=== PATIENT | female | born 1980 | race Caucasian/White ===

== ENCOUNTER → 2017-05-29 | Outpatient (CLI) | payer MEDICAID | LOC: BRMIMAGING 09:25 | PROVIDERS: ATTEND Family Medicine | DX: N64.4 Mastodynia (principal) | CPT/HCPCS: 76641-PO; G0204 ==

== ENCOUNTER → 2017-07-21 | Outpatient (CLI) | payer MEDICAID | LOC: CIMAGING 14:04 | PROVIDERS: ATTEND Family Medicine | DX: M25.572 Pain in left ankle and joints of left foot (principal) | CPT/HCPCS: 73610-PO ==

== ENCOUNTER 2017-08-02 06:14 | Emergency (ER) | payer MEDICAID ==
[2017-08-02 06:17] VITALS: O2SAT 96
[2017-08-02] MEDS ORDERED: predniSONE 20 MG TAB PO ONE (06:40)
--- NOTE | 2017-08-02 06:46 | EDPHY ---
H & P Time Seen by Provider: 08/02/17 06:15 HPI/ROS: CC: neck pain HPI: This 36-year-old female with past medical history of hypothyroidism, anxiety, depression presents to emergency department today complaining of severe neck pain at the base of her head for the last 2 days. She states she was playing with her 3-year-old son on the floor and she was lying on her right side when the full weight of his body fell onto the left side of her head. Since then she has had pain that she rates 6/10 when she is not moving and 8/10 when she does move. The pain is sharp with movement and achy at rest. It has been constant. It radiates to the back of her left shoulder and she describes at discomfort as a burning and hot sensation. The pain was so bad she could not sleep last night. She has tried ibuprofen, ice, heat, and topical oil without relief. She has no numbness, tingling, or weakness in her upper extremities. NOTE: Patient states she prefers to stay away from narcotics, muscle relaxers, and benzodiazepines as she used to have an overuse issue. REVIEW OF SYSTEMS: Constitutional: No fever, no chills. Eyes: No discharge. ENT: No sore throat. Respiratory: No cough, no shortness of breath. Cardiac: No chest pain, no palpitations. Gastrointestinal: No abdominal pain, no vomiting. Genitourinary: No dysuria. Musculoskeletal: SEE HPI. Skin: No rashes. Neurological: No headache. Past Medical/Surgical History: PMH: Insomnia, hypothyroidism, vertigo, SVT PSH: Breast reduction surgery, ovarian cyst, heart ablation, x4 FH: Denied Allergies: Erythromycin which causes vomiting, diarrhea and a rash, morphine which causes itching, disorientation and dizziness Meds: Ibuprofen p.r.n., natural thyroid, herbal medications for digestion and a [place]'s Wort for depression/anxiety Social History: The patient is a former tobacco user. She has an occasional alcoholic beverage. She denies current drug use but states she used to have a "drug issue " mainly referring to pain medication and muscle relaxers. Smoking Status: Former smoker Physical Exam: General Appearance: Alert, mod distress. Eyes: Pupils equal and round no pallor or injection. ENT, Mouth: Mucous membranes are moist. Respiratory: There are no retractions, lungs are clear to auscultation. Cardiovascular: Regular rate and rhythm. Gastrointestinal: Abdomen is nondistended. Neurological: Awake and alert, sensory and motor exams grossly normal. Equal counter server strength and normal light touch BUE. Skin: Warm and dry, no rashes. Musculoskeletal: Neck ROM is restricted due to pain. Moderate to severe tenderness to palpation at C1-C3. No bony step-offs. Extremities are symmetrical, full range of motion. Psychiatric: Patient is oriented X 3, there is no agitation. DIFFERENTIAL DIAGNOSIS: After history and physical exam differential diagnosis was considered for but not limited: for neck strain, herniated disc, c-spine fracture, vertebral artery dissection Constitutional: Initial Vital Signs Temperature (C) 98.8 F 08/02/17 06:16 Heart Rate 68 08/02/17 06:16 Respiratory Rate 18 08/02/17 06:16 Blood Pressure 112/63 08/02/17 06:16 O2 Sat (%) 96 08/02/17 06:16 O2 Delivery Mode Room Air Allergies/Adverse Reactions: erythromycin base [Erythromycin Base] Adverse Reaction (Intermediate, Verified 03/01/13 15:06) Diarrhea morphine [Morphine] Adverse Reaction (Intermediate, Verified 03/01/13 15:06) DIZZY AND VOMITING X14HRS Home Medications: Medication Instructions Recorded Natural Thyroid 05/23/12 Zaleplon [Sonata] 5 - 10 mg PO HS PRN #12 capsule 12/12/15 methylPREDNISolone [Medrol Dose 4 mg PO AD 6 Days ea 08/02/17 Roberto] Medical Decision Making - Diagnostics Imaging Results: 4-view C-spine negative as read by me. Imaging: I viewed and interpreted images myself ED Course/Re-evaluation: The patient was seen and examined. Vital signs were reviewed. The patient would prefer to stay away from narcotics, benzodiazepines and muscle relaxers due to prior overuse issues with these drugs. She was given prednisone 60 mg orally. Plain films of the cervical spine were performed and negative as read by me. Final report pending. She was given a prescription for a Medrol Dosepak and advised to follow up with her primary care provider. If symptoms persist she was advised that she may need an MRI. - Data Points Medications Given: Discontinued Medications Prednisone (Prednisone) 60 mg PO EDNOW ONE Stop: 08/02/17 06:41 Last Admin: 08/02/17 06:47 Dose: 60 mg Departure - Departure Disposition: Home, Routine, Self-Care Clinical Impression: Acute neck sprain Qualifiers: Encounter type: initial encounter Qualified Code(s): S13.9XXA - Sprain of joints and ligaments of unspecified parts of neck, initial encounter Condition: Good Instructions: Cervical Strain (ED) Additional Instructions: Follow up with your primary care provider in the next 7 - 10 days if the symptoms persist or return to the ED sooner if worse as discussed. Referrals: Patient,NotPresent [Primary Care Provider] - As per Instructions Sania Gonzalez MD [Medical Doctor] - As per Instructions Prescriptions: methylPREDNISolone [Medrol Dose Roberto] 4 mg PO AD 6 Days ea
[2017-08-02 09:57] VITALS: BP 122/70; PULSE 73; RESP 16; TEMP 98.2
== END 2017-08-02 07:47 | disposition home or self-care (01) ==
LOC: CED 06:14
DX: S13.9XXA Sprain of joints and ligaments of unspecified parts of neck, initial encounter (principal); Z87.891 Personal history of nicotine dependence; X58.XXXA Exposure to other specified factors, initial encounter
CPT/HCPCS: 72050-PO

== ENCOUNTER 2017-08-18 20:00 | Observation (INO) | payer MEDICAID ==
[2017-08-18 20:29] LABS: COLOR PALE YELLOW; LEUKOCYTE ESTERASE,URINE NEGATIVE (NEGATIVE); NITRITE,URINE NEGATIVE (NEGATIVE)
--- NOTE | 2017-08-18 20:32 | EDPHY ---
H & P Stated Complaint: States noticed hematuria mid morning,rt flank to ruq pain x8 days Time Seen by Provider: 08/18/17 20:08 HPI/ROS: Chief Complaint: Right flank pain, hematuria HPI: 36-year-old woman presenting with 2-3 days of right flank pain. She does have a history of a right neck strain several weeks ago and thinks she has continued to have pain from this. However she has worsening right flank pain for the last 2 days. Today she noticed some hematuria when she went to the restroom. Does not believe she is having vaginal bleeding. Denies any fevers or chills. She is having some nausea but states she is always nauseated, no vomiting. No diarrhea or constipation. Pain is 7/10 at its worst. It is constant. Her last menstrual cycle ended 4 days ago. ROS: 10 point Review of Systems is negative except as noted in the HPI. PMH: Hypothyroidism, SVT status post ablation, x4 Social History: No smoking, no alcohol, no recreational drug use Family History: non-contributory Physical Exam: Gen: Awake, Alert, No Distress HEENT: Nose: no rhinorrhea Eyes: PERRLA, EOMI Mouth: Moist mucosa Neck: Supple, no JVD Chest: nontender, lungs clear to auscultation Heart: S1, S2 normal, no murmur Abd: Soft, moderate right lower quadrant tenderness, no guarding Back: no CVA tenderness, no midline tenderness she does have right paraspinal and system was muscle spasm in tenderness to light palpation reproducing presenting complaint. 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 POST DEPRESSION, SVT-ablation 2010 - Social History Smoking Status: Former smoker Constitutional: Initial Vital Signs Temperature (C) 36.5 C 08/18/17 20:08 Heart Rate 76 08/18/17 20:08 Respiratory Rate 16 08/18/17 20:08 Blood Pressure 127/62 H 08/18/17 20:08 O2 Sat (%) 96 08/18/17 20:08 O2 Delivery Mode Room Air Allergies/Adverse Reactions: erythromycin base [Erythromycin Base] Adverse Reaction (Intermediate, Verified 08/18/17 20:07) Diarrhea morphine [Morphine] Adverse Reaction (Intermediate, Verified 08/18/17 20:07) DIZZY AND VOMITING X14HRS Home Medications: Medication Instructions Recorded Natural Thyroid 05/23/12 Medical Decision Making - Diagnostics Imaging Results: Imaging Impressions Abdomen/Pelvis CT 08/18/17 20:40 Impression: 1. Acute appendicitis +- mucocele or other tumor of the appendix. 2. Contracted gallbladder. 3. No nephro or ureterolithiasis. Results called and discussed with Alistair Sinha MD, at 08/18/2017 21:09 Attention: This CT examination is specifically designed to evaluate patients who are clinically suspected of having acute obstructive uropathy. This examination does not use radiographic contrast, and as such, provides only a limited evaluation of the abdomen, pelvis and retroperitoneum. If there is further clinical suspicion for pathological conditions other than obstructive uropathy, a complete CT evaluation of the abdomen and pelvis utilizing intravenous, oral, and rectal contrast should be considered. General information for patients regarding this examination can be found at [email or web address]. If you have questions or comments about this report, please contact me at (hospital) or [phone] (cell). Imaging: Discussed imaging studies w/ at home independent call center agent Radiologist ED Course/Re-evaluation: 36-year-old with right flank pain and hematuria. Will check urinalysis to confirm any insurance defense attorney and reassess. Urinalysis is consistent with hematuria. There is no pyuria. Will obtain CT scan to rule out kidney stone. CT scan results noted, discussed with Dr. Onofre. Consistent with acute appendicitis. Discussed with Dr. Malcolm Solis, surgery. He will accept the patient transfer to [facility] for planned for appendectomy. I have ordered 1 g of Invanz here. Patient has pain is controlled. She will be going via private vehicle. - Data Points Laboratory Results: 08/18/17 08/18/17 20:20 20:20 Urine Color PALE YELLOW Urine Appearance HAZY Urine pH 7.0 (5.0-7.5) Ur Specific [place] 1.010 (1.002-1.030) Urine Protein NEGATIVE (NEGATIVE) Urine Ketones NEGATIVE (NEGATIVE) Urine Blood 3+ H (NEGATIVE) Urine Nitrate NEGATIVE (NEGATIVE) Urine Bilirubin NEGATIVE (NEGATIVE) Urine Urobilinogen 0.2 EU EU (0.2-1.0) Ur Leukocyte Esterase NEGATIVE (NEGATIVE) Urine RBC 5-10 /hpf H /hpf (0-3) Urine WBC NONE SEEN /hpf /hpf (0-3) Ur Epithelial Cells TRACE /lpf /lpf (NONE-1+) Urine Bacteria TRACE /hpf H /hpf (NONE SEEN) Urine Glucose NEGATIVE (NEGATIVE) Urine Test NEGATIVE Departure - Departure Disposition: [facility] Inpatient Acute Clinical Impression: Acute appendicitis Condition: Fair Referrals: Sania Gonzalez MD [Primary Care Provider] - As per Instructions
[2017-08-18 20:37] LABS: BACTERIA TRACE /hpf (NONE SEEN); WBC,URINE NONE SEEN /hpf (0-3)
[2017-08-18 21:28] LABS: % IMMATURE GRANULYOCYTES 0.3 % (0.0-1.1); ABSOLUTE IMMATURE GRANULOCYTES 0.04 10^3/uL (0.00-0.10); ADD DIFF? NO; ADD MORPH? NO; ADD SCAN? NO; ATYPICAL LYMPHOCYTE FLAG 10 (0-99); FRAGMENT RBC FLAG 0 (0-99); HEMATOCRIT 40.1 % (38.0-47.0); HEMOGLOBIN 13.5 g/dL (12.6-16.3); LEFT SHIFT FLG 0 (0-99); LIPEMIA HEMOLYSIS FLAG 80 (0-99); MEAN CELL HEMOGLOBIN CONCENTR. 33.7 g/dL (32.4-36.7); MEAN CELL VOLUME 83.2 fL (81.5-99.8); MEAN PLATELET VOLUME 9.3 fL (8.7-11.7); PLATELET CLUMPS FLAG 0 (0-99); PLATELET COUNT 311 10^3/uL (150-400); RED BLOOD CELL COUNT 4.82 10^6/uL (4.18-5.33); RED CELL DISTRIBUTION WIDTH 13.5 % (11.5-15.2)
[2017-08-18] MEDS ORDERED: ERTAPENEM 1 GM VIAL IVP ONE (21:32)
[2017-08-18 21:41] LABS: ALANINE AMINOTRANSFERASE 26 IU/L (9-52); ALBUMIN 3.7 g/dL (3.5-5.0); ALKALINE PHOSPHATASE 90 IU/L (38-126); ANION GAP 15 mEq/L (8-16); ASPARTATE AMINOTRANSFERASE 15 IU/L (14-46); BILIRUBIN,TOTAL 0.2 mg/dL (0.1-1.4); CALCIUM 9.1 mg/dL (8.5-10.4); CARBON DIOXIDE 25 mEq/l (22-31); CHLORIDE 102 mEq/L (97-110); GLOMERULAR FILTRATION RATE > 60; GLUCOSE 92 mg/dL (70-100); POTASSIUM 3.8 mEq/L (3.5-5.2); SODIUM 142 mEq/L (134-144); TOTAL PROTEIN 7.2 g/dL (6.3-8.2)
--- NOTE | 2017-08-18 22:09 | GHP ---
[f rep st] PREOP HISTORY AND PHYSICAL Amended report HISTORY OF PRESENT ILLNESS: A 36-year-old female with 2 days of right flank and right lower quadrant pain. CT scan demonstrated an unusually usually enlarged appendix measuring up to 22 mm without signs of perforation, probably acute appendicitis, but could be a mucocele of the appendix. Her white count is also elevated at 12,000. She is admitted at this time for laparoscopic appendectomy. The risks and options are fully discussed. PAST MEDICAL HISTORY: Includes a cardiac ablation for SVT, multiple sections, and hypothyroidism. REVIEW OF SYSTEMS: Negative on a 10-point review of systems. Specifically she does not smoke or have any major cardiopulmonary symptoms at this time. ALLERGIES: Erythromycin. MEDICATIONS: Thyroid. PHYSICAL EXAMINATION: GENERAL: An alert 36-year-old female in no acute distress. HEAD AND NECK: Exam is negative for adenopathy, icterus or oral lesions. CHEST : Clear. CARDIAC: Exam is a regular rhythm. ABDOMEN: Soft, tender in the right lower quadrant. BACK: Reveals no abnormalities. No masses. No CVA tenderness. EXTREMITIES: Reveal full range of motion, full pulses. SKIN: Exam reveals no rashes or lesions. NEUROLOGIC: Exam is symmetric and physiologic. IMPRESSION: Acute appendicitis. PLAN: Laparoscopic appendectomy. The risks and options are fully discussed. /[id number]/MODL Add acc#, 08/19/17, bekah SERNA
[2017-08-18] MEDS ORDERED: ceFAZolin 1 GM/5 ML SYR ONE (23:36)
[2017-08-18] MEDS ORDERED: BUPIVACAINE 0.5% 30 ML SDV ONE (23:36)
[2017-08-18] MEDS ORDERED: HEPARIN 1000 UNIT/1 ML MDV ONE (23:36)
[2017-08-18] MEDS ORDERED: SCOPOLAMINE HYDROBROMIDE 1 MG/3 DAYS PATCH TD ONE (23:44)
[2017-08-18] MEDS ORDERED: SCOPOLAMINE HYDROBROMIDE 1 MG/3 DAYS PATCH TD SCH (23:45)
[2017-08-18] MEDS ORDERED: MIDAZOLAM 2 MG/2 ML VIAL IVP ONE (23:49)
--- NOTE | 2017-08-18 23:51 | PDANEPAE ---
ANE Past Medical History - Cardiovascular History Hx Hypertension: No Hx Arrhythmias: Yes Hx Chest Pain: No Hx Coronary Artery / Peripheral Vascular Disease: No Hx CHF / Valvular Disease: No Hx Palpitations: No Cardiovascular History Comment: h/o arrhythmia ablation - Pulmonary History Hx COPD: No Hx Asthma/Reactive Airway Disease: No Hx Recent Upper Respiratory Infection: Yes Hx Oxygen in Use at Home: No Hx Sleep Apnea: No Sleep Apnea Screening Result - Last Documented: Negative - Endocrine History Hx Diabetes: No Hypothyroid: Yes Hyperthyroid: No Obesity: severe ANE Review of Systems Review of Systems: ANE Patient History - Allergies Allergies/Adverse Reactions: erythromycin base [Erythromycin Base] Adverse Reaction (Intermediate, Verified 08/18/17 20:07) Diarrhea morphine [Morphine] Adverse Reaction (Intermediate, Verified 08/18/17 20:07) DIZZY AND VOMITING X14HRS - Home Medications Home Medications: Natural Thyroid 05/23/12 [Last Taken Unknown] - Smoking Hx Smoking Status: Former smoker ANE Labs/Vital Signs - Labs Result Diagrams: 08/18/17 21:25 08/18/17 21:25 - Vital Signs Blood Pressure: 126/76 Heart Rate: 88 Respiratory Rate: 20 O2 Sat (%): 96 Height: 170.18 cm Weight: 99.79 kg ANE Physical Exam - Airway Neck exam: FROM Mallampati Score: Class 2 Mouth exam: normal dental/mouth exam - Pulmonary Pulmonary: no respiratory distress - Cardiovascular Cardiovascular: regular rate and rhythym - ASA Status ASA Status: II, E ANE Anesthesia Plan Anesthesia Plan: general endotracheal anesthesia
[2017-08-18] MEDS ORDERED: MIDAZOLAM 2 MG/2 ML VIAL ONE (23:56)
[2017-08-19] MEDS ORDERED: PROPOFOL 200 MG/20 ML VIAL ONE (00:03)
[2017-08-19] MEDS ORDERED: ONDANSETRON 4 MG/2 ML VIAL ONE ×2 (00:04→01:18)
[2017-08-19] MEDS ORDERED: ROCURONIUM 100 MG/10 ML VIAL ONE (00:04)
[2017-08-19] MEDS ORDERED: LIDOCAINE 2% 5 ML SDV ONE (00:04)
[2017-08-19] MEDS ORDERED: KETOROLAC 30 MG/1 ML SDV ONE (00:04)
[2017-08-19] MEDS ORDERED: DEXAMETHASONE 4 MG/ML VIAL ONE (00:04)
[2017-08-19] MEDS ORDERED: fentaNYL 100 MCG/2 ML INJ ONE ×2 (00:06→01:18)
[2017-08-19] MEDS ORDERED: SUGAMMADEX SODIUM 200 MG/2 ML VIAL IVP ONE (00:40)
--- NOTE | 2017-08-19 01:05 | POSTOPPROG ---
Post Op Note Date of Operation: 08/19/17 Surgeon: Malcolm Solis Anesthesiologist: lakia Anesthesia: GET(General Endotracheal) Pre-op Diagnosis: acute appe Post-op Diagnosis: same Indication: pain Procedure: lap appe Findings: large dilated appe with minimal inflammation Inf/Abcess present in the surg proc area at time of surgery?: Yes Depth: Organ Space EBL: Minimal Specimen(s): appendix
[2017-08-19] MEDS ORDERED: HYDROmorphONE/DILAUDID 1 MG/ML INJ IVP PRN ×2 (01:06→01:08)
[2017-08-19] MEDS ORDERED: KETOROLAC 30 MG/1 ML SDV IVP ONE (01:06)
[2017-08-19] MEDS ORDERED: ONDANSETRON 4 MG/2 ML VIAL IVP PRN (01:06)
[2017-08-19] MEDS ORDERED: PROMETHAZINE HCL 25 MG/ML INJ IVP PRN (01:08)
[2017-08-19] MEDS ORDERED: NALOXONE HCL 0.4 MG/ML INJ IVP PRN (01:08)
[2017-08-19] MEDS ORDERED: LABETALOL HCL 5 MG/ML 20 ML MDV IVP PRN (01:08)
[2017-08-19] MEDS ORDERED: fentaNYL 100 MCG/2 ML INJ IVP PRN (01:08)
--- NOTE | 2017-08-19 01:10 | POSTANESTH ---
Post Anesthetic Evaluation Cardiovascular Status: Normal, Stable Respiratory Status: Normal, Stable Level of Consciousness/Mental Status: Can Participate in Eval Pain Control: Adequate, Prn Tx Ordered Nausea/Vomiting Control: Adequate, Prn Tx Ordered Complications Possibly Related to Anesthesia: None Noted
[2017-08-19] MEDS ORDERED: D5W 1/2 NS W/ 20 KCl/L 1,000 ML IV SCH (01:15)
[2017-08-19] MEDS ORDERED: PROMETHAZINE HCL 25 MG/ML INJ ONE (01:35)
[2017-08-19 01:49] VITALS: RESP 16
[2017-08-19] MEDS ORDERED: KETOROLAC 15 MG/1 ML SDV IVP SCH (06:00)
[2017-08-19 06:39] VITALS: TEMP 98.3
[2017-08-19 07:39] VITALS: BP 108/65; PULSE 65; O2SAT 95
--- NOTE | 2017-08-19 07:42 | GOP ---
[f rep st] OPERATIVE REPORT DATE OF OPERATION: 08/19/2017 SURGEON: Malcolm Solis MD LEATHER SOFTENER: None. ANESTHESIOLOGIST: Breanne Luong. PREOPERATIVE DIAGNOSIS: Acute appendicitis. POSTOPERATIVE DIAGNOSIS: Acute appendicitis. PROCEDURE PERFORMED: Laparoscopic appendectomy. FINDINGS: ESTIMATED BLOOD LOSS: Negligible. DESCRIPTION OF PROCEDURE: The patient taken to the operating room where she received a satisfactory general endotracheal anesthesia by Dr. Breanne Luogn, placed in supine position, prepped and draped in u sual sterile fashion. A periumbilical incision was made. A Veress needle inserted. Pneumoperitoneu m was established. Trocar was introduced. Laparoscope introduced. Adequate visualization was obtai gordo. Two other trocars were placed in the abdomen under direct vision. The appendix was quite large and dilated. It was elevated up. The mesoappendix was divided with the Harmonic Scalpel and the ba se was skeletonized. It was then divided with an Endo-YASH stapler. The specimen was placed in a spe cimen bag and extracted through the upper midline port site. Hemostasis was assured. The closure lo oked excellent. The trocars were removed under direct vision. Trocar sites were closed with 0 Vicry l for the fascia, 4-0 Monocryl subcuticular stitch for the skin. All layers were infiltrated with 0. 5% Marcaine. OPERATIVE FINDING: The patient was found to have a large distended appendix, very much looking like a mucocele with minimal inflammation. There was no rupture. Was a trace amount of free blood in her pelvis. COMPLICATIONS: There were no complications. Taken to recovery room in good condition there. /[id number]/MODL
--- NOTE | 2017-08-19 09:52 | SOAPPROG ---
SOAP Progress Note Assessment/Plan: Assessment/Plan: 36 Y F s/p lap appy, appendicitis, possible mucocele. Doing well. Eating. Pain controlled. AFVSS. D/c to home. alert, nad no wob rrr abd soft, appropriately ttp, inc cdi 08/19/17 09:51 Objective: Vital Signs Temp Pulse Resp BP Pulse Ox 36.8 C 65 16 108/65 95 08/19/17 07:37 08/19/17 07:37 08/19/17 07:37 08/19/17 07:37 08/19/17 07:37 08/18/17 08/19/17 08/20/17 05:59 05:59 05:59 Intake Total 2400 Output Total 10 Balance 2390 ICD10 Worksheet Patient Problems: Problems Problem Status Onset Acute appendicitis Acute
[2017-08-21] MEDS ORDERED: PATCH REMOVAL 1 EA PATCH TD SCH (23:49)
== END 2017-08-19 11:40 | disposition home or self-care (01) ==
LOC: CED 20:00 → CEDHOLD 21:31 → FOB 23:00
PROVIDERS: ADMIT Surgery; ATTEND Surgery
PROC: 0DTJ4ZZ Resection of Appendix, Percutaneous Endoscopic Approach (ICD-10-PCS; principal; 2017-08-18)
DX: K35.80 Unspecified acute appendicitis (principal); E03.9 Hypothyroidism, unspecified; K82.0 Obstruction of gallbladder; Z87.891 Personal history of nicotine dependence
CPT/HCPCS: 74176-PO; 80053-PO; 81003-PO; 81015-PO; 81025-PO; 83690-PO; 85025-PO; J1100; J1335; J1885; J2250; J2405; J2550; J2704; J3010

== ENCOUNTER 2017-09-09 12:45 | Emergency (ER) | payer MEDICAID ==
[2017-09-09 12:54] VITALS: TEMP 98
[2017-09-09] MEDS ORDERED: NS 1,000 ML IV ONE (13:53)
[2017-09-09 14:06] LABS: PLATELET COUNT 308 10^3/uL (150-400)
[2017-09-09 14:16] VITALS: PULSE 74; RESP 18
--- NOTE | 2017-09-09 15:27 | EDPHY ---
H & P Stated Complaint: here 2 wks ago with appy/ 23 Rt abd painN/V/GRECO/URI Time Seen by Provider: 09/09/17 13:10 HPI/ROS: CHIEF COMPLAINT: Abdominal pain History by patient HISTORY OF PRESENT ILLNESS: 36-year-old woman who is 2 weeks status post appendectomy presents complaining of 48 hr of increasing right upper quadrant pain. Patient states it feels similar to when she had her appendix symptoms. The pain comes and goes and she describes it as severe and stabbing. She has had no fever chills. She has had some mild nausea but no vomiting has been able to eat somewhat but she feels that this makes it somewhat worse. She denies any urinary symptoms but states that she has some chronic stress incontinence. Patient states that she also has polycystic ovary disease and has some chronic lower abdominal pain and is 1 week late for her menses and feels like this may be also be acting up. She has had no vomiting and no change in bowels. She had a bowel movement today. Patient also notes she has had URI symptoms for few days and has been doing lots of coughing and feels like the coughing exacerbates her abdominal pain. She has a history of asthma in childhood. She does not smoke. 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 POST DEPRESSION, SVT-ablation 2010 - Social History Smoking Status: Former smoker - Physical Exam Exam: General Appearance: Alert, obese, comfortable appearing. Eyes: Pupils equal and round, no pallor or injection. Mouth: Mucous membranes moist. Respiratory: Normal, effort, lungs are clear to auscultation. No wheezes, rales or rhonchi but positive wheeze with cough Cardiovascular: Regular rate and rhythm. S1, S2, no murmurs, gallops or rubs appreciated Gastrointestinal: bowel sounds present, Abdomen is soft and mild right upper quadrant tenderness, no masses Back: No CVA tenderness, no bony tenderness Neurological: Awake, alert and oriented x 3, no pronator drift, normal gait, no pronator drift Skin: Warm and dry, no rashes. Musculoskeletal: No deformities or tenderness. Extremities: full range of motion, no edema Psychiatric: Patient has normal affect, there is no agitation. Constitutional: Initial Vital Signs Temperature (C) 36.6 C 09/09/17 12:50 Heart Rate 81 09/09/17 12:50 Respiratory Rate 20 09/09/17 12:50 Blood Pressure 124/70 H 09/09/17 12:50 O2 Sat (%) 94 09/09/17 12:50 O2 Delivery Mode Room Air Allergies/Adverse Reactions: erythromycin base [Erythromycin Base] Allergy (Intermediate, Verified 08/19/17 00:08) Diarrhea morphine [Morphine] Allergy (Intermediate, Verified 08/19/17 00:08) DIZZY AND VOMITING X14HRS Home Medications: Medication Instructions Recorded Natural Thyroid 05/23/12 Hydrocodone/APAP 5/325 [[place] 1 - 2 tab PO Q4H PRN #14 tab 08/19/17 5/325 (*)] Ibuprofen [Motrin (*)] 600 mg PO Q6H #40 tab 08/19/17 Albuterol [Proventil Inhaler HFA 1 - 2 puffs IH Q4H #1 mdi 09/09/17 (*)] Medical Decision Making - Diagnostics Imaging: Discussed imaging studies w/ bingo caller Radiologist ED Course/Re-evaluation: 36-year-old woman who is 2 weeks status post appendectomy presents with recurrence of right upper abdominal pain. She is afebrile. Urinalysis shows persistent hematuria but no evidence of infection. It has been sent for culture. Patient was given an ibuprofen after which she was feeling minimal relief. On repeat exams remained tender in the right upper quadrant with a positive Sinha sign. Labs are notable for an elevated white blood cell count and normal chemistries. At this point I doubt surgical infection but I am concerned about her gallbladder and therefore a right upper quadrant ultrasound has been ordered. Right upper quadrant ultrasound showed no evidence of sonographic murky peas was otherwise unremarkable. Patient was able tolerate crackers in the emergency department. This might cause of her symptoms remains unclear but I my suspicion of intra-abdominal infection is low at this point. I recommend patient is re-examined 24 hr either here or by her primary care physician and sooner if she gets worse or develops new symptoms. In addition the patient has had several days of cough and URI symptoms and has a wheezy cough on exam and she has been prescribed an albuterol inhaler for this. - Data Points Laboratory Results: Laboratory Results 09/09/17 14:04 09/09/17 14:04 09/09/17 09/09/17 09/09/17 14:04 14:04 13:10 WBC 10.76 10^3/uL H 10^3/uL (3.80-9.50) RBC 4.82 10^6/uL 10^6/uL (4.18-5.33) Hgb 13.2 g/dL g/dL (12.6-16.3) Hct 40.0 % % (38.0-47.0) MCV 83.0 fL fL (81.5-99.8) MCH 27.4 pg L pg (27.9-34.1) MCHC 33.0 g/dL g/dL (32.4-36.7) RDW 13.8 % % (11.5-15.2) Plt Count 308 10^3/uL 10^3/uL (150-400) MPV 9.2 fL fL (8.7-11.7) Neut % (Auto) 68.0 % % (39.3-74.2) Lymph % (Auto) 21.9 % % (15.0-45.0) [place] % (Auto) 6.6 % % (4.5-13.0) Eos % (Auto) 2.5 % % (0.6-7.6) Baso % (Auto) 0.7 % % (0.3-1.7) Nucleat RBC Rel Count 0.0 % % (0.0-0.2) Absolute Neuts (auto) 7.31 10^3/uL H 10^3/uL (1.70-6.50) Absolute Lymphs (auto) 2.36 10^3/uL 10^3/uL (1.00-3.00) Absolute Monos (auto) 0.71 10^3/uL 10^3/uL (0.30-0.80) Absolute Eos (auto) 0.27 10^3/uL 10^3/uL (0.03-0.40) Absolute Basos (auto) 0.08 10^3/uL 10^3/uL (0.02-0.10) Absolute Nucleated RBC 0.00 10^3/uL 10^3/uL (0-0.01) Immature Gran % 0.3 % % (0.0-1.1) Immature Gran # 0.03 10^3/uL 10^3/uL (0.00-0.10) Sodium 142 mEq/L mEq/L (134-144) Potassium 4.2 mEq/L mEq/L (3.5-5.2) Chloride 105 mEq/L mEq/L (97-110) Carbon Dioxide 24 mEq/l mEq/l (22-31) Anion Gap 13 mEq/L mEq/L (8-16) BUN 15 mg/dL mg/dL (7-23) Creatinine 0.9 mg/dL mg/dL (0.6-1.0) Estimated GFR > 60 Glucose 84 mg/dL mg/dL (70-100) Calcium 8.9 mg/dL mg/dL (8.5-10.4) TSH 6.480 uIU/mL H uIU/mL (0.465-4.680) Urine Color YELLOW Urine Appearance CLEAR Urine pH 6.0 (5.0-7.5) Ur Specific [place] 1.015 (1.002-1.030) Urine Protein NEGATIVE (NEGATIVE) Urine Ketones NEGATIVE (NEGATIVE) Urine Blood 1+ H (NEGATIVE) Urine Nitrate NEGATIVE (NEGATIVE) Urine Bilirubin NEGATIVE (NEGATIVE) Urine Urobilinogen 0.2 EU EU (0.2-1.0) Ur Leukocyte Esterase NEGATIVE (NEGATIVE) Urine RBC 5-10 /hpf H /hpf (0-3) Urine WBC 1-3 /hpf /hpf (0-3) Ur Epithelial Cells 1+ /lpf /lpf (NONE-1+) Urine Bacteria 1+ /hpf H /hpf (NONE SEEN) Urine Mucus 2+ /lpf H /lpf (NONE-1+) Urine Yeast OCCASIONAL /hpf H /hpf (NONE SEEN) Urine Glucose NEGATIVE (NEGATIVE) Medications Given: Discontinued Medications Sodium Chloride (Ns) 1,000 mls @ 0 mls/hr IV ONCE ONE; Wide Open PRN Reason: Protocol Stop: 09/09/17 13:54 Last Admin: 09/09/17 14:12 Dose: 1,000 mls Departure - Departure Disposition: Home, Routine, Self-Care Clinical Impression: Abdominal pain Qualifiers: Abdominal location: right upper quadrant Qualified Code(s): R10.11 - Right upper quadrant pain Upper respiratory infection Qualifiers: URI type: unspecified URI Qualified Code(s): J06.9 - Acute upper respiratory infection, unspecified Condition: Good Instructions: Abdominal Pain (ED), Upper Respiratory Infection (ED) Additional Instructions: You were seen by Dr. Jaqueline Bull today. Ultrasound was unremarkable. Please see your primary care physician tomorrow for re-evaluation and sooner in the ED if worse or new symptoms. Please use albuterol inhaler as needed for coughing. Return for any worsening or new concerns. Referrals: Unknown,Unknown [Primary Care Provider] - As per Instructions Prescriptions: Albuterol [Proventil Inhaler HFA (*)] 1 - 2 puffs IH Q4H #1 mdi
[2017-09-09 16:04] VITALS: BP 117/62; O2SAT 94
== END 2017-09-09 16:01 | disposition home or self-care (01) ==
LOC: CED 12:45
DX: R10.11 Right upper quadrant pain (principal); J06.9 Acute upper respiratory infection, unspecified; J45.909 Unspecified asthma, uncomplicated; E86.9 Volume depletion, unspecified; Z87.891 Personal history of nicotine dependence
CPT/HCPCS: 76705-PO; 80048-PO; 81003-PO; 81015-PO; 84443-PO; 85025-PO

== ENCOUNTER 2018-12-14 18:35 | Emergency (ER) | payer MEDICAID ==
[2018-12-14] MEDS ORDERED: NS 1,000 ML IV ONE (18:59)
[2018-12-14] MEDS ORDERED: KETOROLAC 30 MG/1 ML SDV IVP ONE (20:03)
--- NOTE | 2018-12-14 20:06 | EDPHY ---
H & P Stated Complaint: pain right lower pelvic area for 2 weeks,nausea Time Seen by Provider: 12/14/18 18:48 HPI/ROS: This patient presents with achy pain to the right lower belly 2 weeks in duration, similar to pain from ovarian cysts in the past with a history of polycystic ovarian disease. She states that she has had minimal improvement from [id number] analgesics in that the pain worsened today to 7/10 intensity. She feels partial improvement at rest and slightly worse with movement but notes no other exacerbating factors. It does radiate slightly to her right flank for the 1st time today but is otherwise unchanged other than the intensity mentioned above. She did have a ruptured cyst in the past and required surgery for cyst that was group for size and due to the concerns of potential complications of ovarian cysts came in today for evaluation. She has associated mild nausea and no other associated symptoms. Her last menstrual period was 28 days ago and she anticipates imminent menstrual period. She reports that her pain usually diminishes significantly when she has a menstrual period. ROS: Constitutional: No fevers or chills HEENT: No complaints Pulmonary: No complaints Cardiovascular: No lightheadedness GI: She maintains normal appetite. She has no vomiting. No diarrhea. No abdominal distension. : No dysuria frequency or urgency. No vaginal discharge. 10 point review of symptoms is performed and otherwise negative with exception of pertinent positives and negatives listed in HPI and ROS Source: Patient Exam Limitations: No limitations - Personal History LMP (Females 10-55): 22-28 Days Ago Current Tetanus Diphtheria and Acellular Pertussis (TDAP): Yes Tetanus Vaccine Date: 2009 - Medical/Surgical History PMH: Appendicitis with appendectomy A CT performed on 08/18/2017 of abdomen pelvis revealed no nephrolithiasis at that time Hx Asthma: Yes Hx Chronic Respiratory Disease: No Hx Diabetes: No Hx Cardiac Disease: No Hx Renal Disease: No Hx Cirrhosis: No Hx Alcoholism: No Hx HIV/AIDS: No Hx Splenectomy or Spleen Trauma: No Other PMH: HASHIMOTOS DISEASE, EATING DISORDER,. POST DEPRESSION, SVT- ablation 2010,PCOS, ovarian cyst removals right,5 miscarriages,appendectomy, breast reduction - Family History Significant Family History: No pertinent family hx - Social History Smoking Status: Former smoker Alcohol Use: Occasionally Drug Use: None Additional Social History: She is a single mother of 4 children - Physical Exam Exam: General Appearance: Alert, no distress. Eyes: Pupils equal and round no pallor or injection. ENT, Mouth: Mucous membranes moist. Respiratory: There are no retractions, lungs are clear to auscultation. Cardiovascular: Regular rate and rhythm. Gastrointestinal: Normoactive, soft, positive right lower quadrant tenderness that is mild with no guarding or rebound. Back: No CVA tenderness Neurological: GCS 15. Skin: Warm and dry, no rashes. Musculoskeletal: Neck is supple nontender. Extremities are symmetrical, full range of motion. Psychiatric: Mood and affect are normal DIFFERENTIAL DIAGNOSIS: After history and physical exam differential diagnosis was considered for ovarian cyst, premenstrual cramping, ectopic , urinary tract infection, constipation Constitutional: Initial Vital Signs Temperature (C) 37 C 12/14/18 18:47 Heart Rate 80 12/14/18 18:47 Respiratory Rate 16 12/14/18 18:47 Blood Pressure 116/62 12/14/18 18:47 O2 Sat (%) 97 12/14/18 18:47 O2 Delivery Mode Room Air Allergies/Adverse Reactions: erythromycin base [Erythromycin Base] Allergy (Intermediate, Verified 12/14/18 18:45) Diarrhea morphine [Morphine] Allergy (Intermediate, Verified 12/14/18 18:45) DIZZY AND VOMITING X14HRS Home Medications: Medication Instructions Recorded Natural Thyroid 05/23/12 Albuterol [Proventil Inhaler HFA 1 - 2 puffs IH PRN PRN 12/14/18 (*)] Medical Decision Making ED Course/Re-evaluation: IV normal saline bolus Review of labs reveals normal CBC, normal basic metabolic panel, negative urine test, urine dip normal exception of trace blood. Patient declined any analgesics and declined any antiemetics reporting her nausea had spontaneously improved. She explains that she simply wanted to rule out any potential change risk complications or diagnoses but felt that she could handle her pain with a combination of ibuprofen Tylenol at home. She did except a dose of Toradol after learning that would not cause any sort of sedation . She reports some improvement in her pain after Toradol Discussion: Patient with right lower quadrant discomfort similar to previous ovarian cyst with benign workup tonight-no rebound tenderness, normal CBC and vital signs. We ruled out , UTI is no other red flag findings. Patient will follow up with OBGYN for any ongoing symptoms. I counseled regarding all of her test results and plan in some detail answered all her questions prior to discharge. She understands need to return to the emergency department should she develop any significant worsening of her symptoms despite treatment plan. - Data Points Laboratory Results: 12/14/18 19:33 POC Sodium 140 mEq/L mEq/L (135-145) POC Potassium 4.0 mEq/L mEq/L (3.3-5.0) POC Chloride 107.0 mEq/L mEq/L (97-110) POC Total CO2 26 mEq/L mEq/L (22-31) POC BUN 20 mg/dL mg/dL (7-23) POC Creatinine 1.0 mg/dL mg/dL (0.6-1.0) POC Glucose 81 mg/dL mg/dL (70-100) POC Calcium 9.6 mg/dL mg/dL (8.5-10.4) Medications Given: Discontinued Medications Sodium Chloride (Ns) 1,000 mls @ 0 mls/hr IV ONCE ONE; Wide Open PRN Reason: Protocol Stop: 12/14/18 19:00 Last Admin: 12/14/18 19:32 Dose: 1,000 mls Ketorolac Tromethamine (Toradol) 30 mg IVP EDNOW ONE Stop: 12/14/18 20:04 Last Admin: 12/14/18 20:10 Dose: 30 mg Point of Care Test Results: CBC CBC Collection Date 12/14/18 CBC Collection Time 19:25 WBC 9.93 RBC 4.87 HGB 13.7 HCT 40.5 PLT 271 Neut # 6.18 Neut 62.2 LYMPH # 2.54 LYMPH 25.6 MCV 83.2 Chemistry 12/14/18 19:33 POC Sodium 140 mEq/L mEq/L (135-145) POC Potassium 4.0 mEq/L mEq/L (3.3-5.0) POC Chloride 107.0 mEq/L mEq/L (97-110) POC Total CO2 26 mEq/L mEq/L (22-31) POC BUN 20 mg/dL mg/dL (7-23) POC Creatinine 1.0 mg/dL mg/dL (0.6-1.0) POC Glucose 81 mg/dL mg/dL (70-100) POC Calcium 9.6 mg/dL mg/dL (8.5-10.4) Urine Collection Date 12/14/18 Collection Time 19:15 HCG Results Negative Urine Dip Collection Date 12/14/18 Collection Time 19:15 Specific [place] (1.002-1.030) 1.020 PH (5.0-7.5) 6.5 Leukocytes (Negative) Negative Nitrites (Negative) Negative Protein (Negative) Negative Glucose (Negative) Negative Ketones (Negative) Negative Urobilnogen (0.2-1.0 EU) 0.2 Bilirubin (Negative) Negative Blood (Negative) 1+ Departure - Departure Disposition: Home, Routine, Self-Care Clinical Impression: Lower abdominal pain Condition: Good Instructions: Ovarian Cyst (ED), Acute Abdominal Pain (ED) Additional Instructions: Diagnosis: Lower abdominal pain Today workup revealed a normal blood count, normal basic metabolic panel and urinalysis that showed microscopic blood but is otherwise normal. You are not . It is likely that you are having ovarian cysts is cause of her pain based on the nature the pain, ear prior history and new tenderness on exam. However no "red flag findings" on your workup today. Plan: Ibuprofen Tylenol for pain as needed Follow up with OBGYN for any ongoing symptoms do not resolve within the next few days. Return for any significant worsening despite treatment plan Referrals: Sania Gonzalez MD [Primary Care Provider] - As per Instructions Geraldine Morel DO [Doctor of Osteopathy] - As per Instructions
[2018-12-14 20:28] VITALS: BP 113/59
== END 2018-12-14 20:25 | disposition home or self-care (01) ==
LOC: CED 18:35
DX: R10.2 Pelvic and perineal pain (principal); E86.9 Volume depletion, unspecified; Z87.42 Personal history of other diseases of the female genital tract
CPT/HCPCS: 80048-ER; 81025-ER; 85025-QW-ER; 96361-ER; 96374-ER; 99284-ER; J1885

== ENCOUNTER 2019-01-03 09:33 | Emergency (ER) | payer MEDICAID ==
--- NOTE | 2019-01-03 09:51 | EDPHY ---
H & P Stated Complaint: Rash on arms and legs for 1 day, ST, SOB. Dx with Pneumonia Time Seen by Provider: 01/03/19 09:35 HPI/ROS: 38-year-old female presents complaining of recently diagnosed with "walking pneumonia" and placed on azithromycin she states she has taken approximately 3 doses and now has noticed a rash to her arms and legs that is very pruritic. She had a prior history of adverse reaction to erythromycin with diarrhea and is concerned that this might be a possible allergic reaction. She also complains of ongoing cough, congestion and mild sore throat. No throat swelling, no difficulty breathing. Review of systems As per HPI-positive nasal congestion, positive URI symptoms General no fever no chills no weakness HEENT no eye pain no eye discharge. No eye redness, no sore throat Respiratory positive cough, no shortness of breath Cardiac no chest pain, no peripheral edema GI no abdominal pain, no diarrhea, no constipation, no nausea, no vomiting no flank pain, no hematuria, no dysuria Musculoskeletal no myalgias, no joint pain Heme no easy bruising, no easy bleeding Endo no polyuria, no polydipsia Skin positive rashes, positive pruritus Neuro no syncope, no dizziness, no headaches Psych is no suicidal ideation, no homicidal ideation Source: Patient Exam Limitations: No limitations - Personal History Current Tetanus Diphtheria and Acellular Pertussis (TDAP): Yes Tetanus Vaccine Date: 2009 - Medical/Surgical History Hx Asthma: Yes Hx Chronic Respiratory Disease: No Hx Diabetes: No Hx Cardiac Disease: No Hx Renal Disease: No Hx Cirrhosis: No Hx Alcoholism: No Hx HIV/AIDS: No Hx Splenectomy or Spleen Trauma: No Other PMH: HASHIMOTOS DISEASE, EATING DISORDER,. POST DEPRESSION, SVT- ablation 2010,PCOS, ovarian cyst removals right,5 miscarriages,appendectomy, breast reduction - Family History Significant Family History: No pertinent family hx - Social History Smoking Status: Former smoker Alcohol Use: Rarely Drug Use: None - Physical Exam Exam: 38-year-old female Alert and oriented nontoxic appearance, no acute distress afebrile Atraumatic normocephalic Extraocular muscles intact, anicteric Nares mild yellowish discharge Oropharynx mild erythema no tonsillar swelling no exudate no uvular deviation, tolerating own secretions Neck supple no lymphadenopathy Lungs clear to auscultation bilaterally Heart regular rate and rhythm Abdomen normoactive bowel sounds soft nontender Extremities no cyanosis clubbing or edema Skin currently without evidence of rash however description of rest is macular papular erythematous and pruritic Constitutional: Initial Vital Signs Temperature (C) 36.7 C 01/03/19 09:36 Heart Rate 91 01/03/19 09:36 Respiratory Rate 16 01/03/19 09:36 Blood Pressure 108/76 01/03/19 09:36 O2 Sat (%) 93 01/03/19 09:36 O2 Delivery Mode Room Air Allergies/Adverse Reactions: erythromycin base [Erythromycin Base] Allergy (Intermediate, Verified 01/03/19 09:48) Diarrhea morphine [Morphine] Allergy (Intermediate, Verified 01/03/19 09:48) DIZZY AND VOMITING X14HRS Home Medications: Medication Instructions Recorded Natural Thyroid 05/23/12 Albuterol [Proventil Inhaler HFA 1 - 2 puffs IH PRN PRN 12/14/18 (*)] Doxycycline Hyclate [Vibramycin 100 mg PO BID 7 Days #14 cap 01/03/19 100 MG (*)] Zithromax 01/03/19 predniSONE 40 mg PO DAILY 5 Days #10 tab 01/03/19 Medical Decision Making - Diagnostics Imaging Results: Imaging Impressions Chest X-Ray 01/03/19 10:22 Impression: Airways disease and minimal atelectasis. No lobar pneumonia. ED Course/Re-evaluation: Patient seen and evaluated for rash, transient, cough cold symptoms. Recently diagnosed clinically with pneumonia. And placed on azithromycin Chest x-ray negative for pneumonia but consistent with airways disease Patient given DuoNeb, prednisone 60 mg while in the emergency department with marked improvement in her breathing. Impression Bronchitis with reactive airway Possible allergic reaction to azithromycin Plan Prednisone burst Albuterol . Azithromycin, will changed to doxycycline 100 twice daily x7 days Follow-up with Dr. Gonzalez this week Differential Diagnosis: Differential diagnosis considered but not limited to Urticaria, pneumonia, bronchitis, URI, reactive airway - Data Points Medications Given: Discontinued Medications Albuterol/Ipratropium (Duoneb) 3 ml IH EDNOW ONE Stop: 01/03/19 10:21 Last Admin: 01/03/19 10:30 Dose: 3 ml Prednisone (Prednisone) 60 mg PO EDNOW ONE Stop: 01/03/19 10:21 Last Admin: 01/03/19 10:30 Dose: 60 mg Departure - Departure Disposition: Home, Routine, Self-Care Clinical Impression: Acute bronchitis, Urticaria, Pharyngitis Condition: Good Referrals: Sania Gonzalez MD [Primary Care Provider] - As per Instructions Prescriptions: Doxycycline Hyclate [Vibramycin 100 MG (*)] 100 mg PO BID 7 Days #14 cap predniSONE 40 mg PO DAILY 5 Days #10 tab
[2019-01-03] MEDS ORDERED: IPRATROPIUM/ALBUTEROL 3 ML DEYVIAL IH ONE (10:20)
[2019-01-03] MEDS ORDERED: predniSONE 20 MG TAB PO ONE (10:20)
[2019-01-03 11:30] VITALS: BP 104/70
== END 2019-01-03 11:26 | disposition home or self-care (01) ==
LOC: CED 09:33
DX: J20.9 Acute bronchitis, unspecified (principal); L50.9 Urticaria, unspecified; J02.9 Acute pharyngitis, unspecified; J45.909 Unspecified asthma, uncomplicated
CPT/HCPCS: 71046-PO; 99284-ER; J7512

== ENCOUNTER → 2019-01-27 | Outpatient (CLI) | payer MEDICAID | LOC: CIMAGING 17:13 | PROVIDERS: ATTEND Nurse Practitioner Family | DX: R10.2 Pelvic and perineal pain (principal); F43.9 Reaction to severe stress, unspecified; Z98.891 History of uterine scar from previous surgery | CPT/HCPCS: 76856-PO ==